=== PATIENT | male | born 1990 | race Caucasian/White ===

== ENCOUNTER 2022-09-10 18:45 | Observation (INO) | payer BC ==
[~2022-09-10] VITALS: Ht 167.6 cm; Wt 99.7 kg
[~2022-09-10 18:45] MED LIST changes: -OXYC10ER PO
--- NOTE | 2022-09-11 04:56 | NUR ---
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 PT ADMITTED FOR ACUTE APPENDICITIS. PT HAS HAD MINIMAL PAIN AND HAS DENIED THE NEED FOR PAIN MEDICATIONS. IV FLUIDS RUNNING AND IV ABX PER ORDERS. PT INDEPENDENT IN ROOM AND VERY PLEASANT, HAS SLEPT MOST OF THE NIGHT. HAS BEEN NPO SINCE ARRIVING TO THE UNIT IN PREP FOR SURGERY LATER TODAY. VSS, WILL CONTINUE TO MONITOR.
[2022-09-11] MEDS ORDERED: OXYC10ER PO (16:54)
--- NOTE | 2022-09-11 18:22 | NUR ---
DISCHARGE SUMMARY POD0 LAP APPY, A/OX4, VSS, TOLERATING PO, AMBULATING INDEPENDENTLY, PAIN WELL MANAGED WITH ORAL PAIN MEDICATIONS. DISCUSSED DISCHARGE INSTRUCTIONS WITH PT INCLUDING HOME CARE, MEDICATIONS, FOLLOW UP APPOINTMENTS. PT HAD NO QUESTIONS AT THIS TIME. DECLINED WC ESCORT, LEFT AMBULATORY TO MEET HIS AT THE FRONT DOOR TO GO HOME.
== END 2022-09-11 18:19 | disposition home or self-care (01) ==
LOC: ER 18:45 → SURS 21:17 → ER 21:17 → SURS 22:08
PROVIDERS: Surgery; ADMIT Surgery
PROC: 0DTJ4ZZ Resection of Appendix, Percutaneous Endoscopic Approach (ICD-10-PCS; principal; 2022-09-11 09:00)
DX: K35.80 Unspecified acute appendicitis (principal); Z88.8 Allergy status to other drugs, medicaments and biological substances; F17.298 Nicotine dependence, other tobacco product, with other nicotine-induced disorders
CPT/HCPCS: 36415; 83605; A9270; J0694; J0696; J1100; J1885; J2250; J2405; J2704; J2795; J3010; J7030; J7120

== ENCOUNTER → 2022-09-10 | Outpatient (CLI) | payer BC ==
[~2022-09-10] MED LIST: CEPH500 PO; CYCL10 PO; IBUP600 PO; IBUP800 PO; ONDA4ODT MM; OXYACE5T PO; OXYC10ER PO; RXCYCL10 PO; RXOXYACE PO; SULTRIDS PO; TRAM50 PO
[2022-09-10 14:10] LABS: BASOPHILS ABSOLUTE AUTO 0.05 K/mm3 (0.00-0.23); BASOPHILS PERCENT AUTO 0 % (0-2); EOSINOPHILS ABSOLUTE AUTO 0.14 K/mm3 (0.00-0.68); EOSINOPHILS PERCENT AUTO 1 % (0-6); Hemoglobin 17.1 g/dL (13.5-17.5); IMMATURE GRAN ABSOLUTE AUTO 0.06 K/mm3 (0.00-0.10); IMMATURE GRAN PERCENT AUTO 0 % (0-1); LYMPHOCYTES PERCENT AUTO 11 % (21-46); MONOCYTES ABSOLUTE AUTO 1.13 K/mm3 (0.16-1.47); MONOCYTES PERCENT AUTO 7 % (4-13); Mean Corpuscular HGB 29.1 pg (26.0-34.0); Mean Corpuscular HGB Conc 34.9 g/dL (31.5-36.5); Mean Corpuscular Volume 83 fL (80-100); NEUTROPHILS ABSOLUTE AUTO 12.36 K/mm3 (1.96-9.15); NEUTROPHILS PERCENT AUTO 80 % (41-73); Platelet Count 301 K/mm3 (150-400); RDW Coefficient Variation 12.1 % (11.7-14.2); RDW Standard Deviation 36.7 fL (35.1-46.3); Red Blood Cell Count 5.88 M/mm3 (4.30-5.90); White Blood Cell Count 15.44 K/mm3 (4.00-11.30)
[2022-09-10 14:25] LABS: Albumin, Blood 4.3 g/dL (3.4-5.0); Albumin/Globulin Ratio 1.1 (0.8-1.8); Bilirubin, Total 0.5 mg/dL (0.1-1.0); Bun/Creatinine Ratio 13.5 (12.0-20.0); Calcium, Blood 9.2 mg/dL (8.5-10.1); Creatinine, Blood 0.89 mg/dL (0.60-1.20); Globulin, Blood 3.8 g/dL (2.2-4.0); Potassium, Blood 3.8 mmol/L (3.5-5.5); Total Protein, Blood 8.1 g/dL (6.4-8.2)
== END | disposition home or self-care (01) ==
LOC: LAB 14:04 → LAB SHORT 14:04
PROVIDERS: Physician Assistant
DX: R10.9 Unspecified abdominal pain (principal)
CPT/HCPCS: 80053; 82150; 83690; 85025